=== PATIENT | male | born 1985 | race Caucasian/White ===

== ENCOUNTER 2017-01-06 05:05 | Emergency (ER) | payer OTHER ==
[~2017-01-06] VITALS: Ht 170.2 cm; Wt 72.6 kg
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
--- NOTE | 2017-01-06 05:05 | NUR ---
SMITH CHA ON SCENE AT [facility] AND IS AT BEDSIDE
--- NOTE | 2017-01-06 05:05 | NUR ---
BIB WHEELCHAIR TO ER BED 6 ACCOMPANIED BY SMITH CHA
[2017-01-06] MEDS ORDERED: NACL 0.9% 2,000 ML IV ONE (05:15)
[2017-01-06] MEDS ORDERED: LORazepam 2 MG/ML VIAL IVP ONE (05:15)
[2017-01-06] MEDS ORDERED: LORazepam 2 MG/ML VIAL ONE (05:16)
[2017-01-06] MEDS ORDERED: diphenhydrAMINE 50 MG/ML VIAL ONE (05:26)
[2017-01-06] MEDS ORDERED: HALOPERIDOL IM 5 MG/ML VIAL ONE ×2 (05:27→05:33)
[2017-01-06 05:40] VITALS: BP 120/90
[2017-01-06] MEDS ORDERED: MORPHINE SULFATE 2 MG/ML SYR IM ONE (06:00)
[2017-01-06] MEDS ORDERED: HALOPERIDOL IM 5 MG/ML VIAL IM ONE (06:05)
[2017-01-06] MEDS ORDERED: diphenhydrAMINE 50 MG/ML VIAL IM ONE (06:05)
[2017-01-06] MEDS ORDERED: LORazepam 2 MG/ML VIAL IM ONE (06:05)
--- NOTE | 2017-01-06 06:33 | NUR ---
SPOKE TO ER MD DR RICKS REGARDING URINE, DR RICKS STATED TO HOLD THE CATH INSERTION BC PT JUST FINALLY CALMED DOWN
--- NOTE | 2017-01-06 06:34 | NUR ---
PLAN OF CARE FOR RESTRAINTS WAS NOT FILLED OUT COMPLETELY BC INFORMATION TO COMPLETE IS UNABLE TO ASSESS AT THE MOMENT; PT CURRENTLY SLEEPING;
--- NOTE | 2017-01-06 07:13 | NUR ---
Pt report given to ELICIA BLANCO . Transfer of care at this time.
--- NOTE | 2017-01-06 07:15 | NUR ---
RECEIVED PATIENT ON BED WITH 4 POINT RESTRAINT.PT IS AGITATED AND WANTED TO GET OUT OF BED.PT IS ORIENTED TO PERSON,PLACE AND KNOWS 2017.DR ZARATE MADE AWARE.NO CO PAIN.
--- NOTE | 2017-01-06 09:29 | NUR ---
PUMA LUTZ UPDATED ABOUT PATIENTS CONDITION ESPECIALLY USAGE OF 4 POINT RESTRAINTS.
--- NOTE | 2017-01-06 10:25 | NUR ---
PT IS CALM AND COOPERATIVE AND FOLLLOWS DIRECTION AND UNDERSTANDS RELEASED OF 4 POINT RESTRAINTS.PT IS NOT COMBATIVE.GRANDMA BOLIVAR AT THE BEDSIDE TO BRING HIM HOME.PT IS ALERT,ORIENTED X 3.PT STILL DOESNT WANT TO URINATE .DR ZARATE SAID ITS OK HE CAN GO HOME.
[2017-01-06 10:55] VITALS: BP 119/63
--- NOTE | 2017-01-06 10:55 | NUR ---
Patient discharged with v/s stable. Written and verbal after care instructions given and explained. Patient verbalized understanding. Ambulatory with steady gait. All questions addressed prior to discharge. Advised to follow up with PMD.PUMA LUTZ BROUGHT THE PATIENT HOME.PT IS CALM ,COOPERATIVE AND FOLLOWS DIRECTIONS.
== END 2017-01-06 10:55 | disposition home or self-care (01) ==
LOC: MED 05:05
DX: F19.10 Other psychoactive substance abuse, uncomplicated (principal); R40.4 Transient alteration of awareness
CPT/HCPCS: 36415; 80053; 85025; 93005; 96360; 96372; 99285; G0480; G0482; J1200; J1630; J2060; J7030

== ENCOUNTER 2017-06-29 13:07 | Inpatient (IN) | payer OTHER ==
[~2017-06-29] VITALS: Ht 170.2 cm; Wt 76.7 kg
--- NOTE | 2017-06-29 13:07 | NUR ---
Patient was BIBA and taken to bed 03 via gurney per EMS.
[2017-06-29 13:09] VITALS: BP 160/72
--- NOTE | 2017-06-29 13:10 | NUR ---
PT PLACED ON 5150 HOLD BY SMITH CHA AT 1245 TODAY.
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
[2017-06-29] MEDS ORDERED: FLUO10CA21 PO (13:15)
--- NOTE | 2017-06-29 13:17 | NUR ---
Dr. Molina at bedside to evaluate patient.
[2017-06-29] MEDS ORDERED: OLAN2.5T1 PO (13:19)
[2017-06-29] MEDS ORDERED: QUET100T PO (13:19)
[2017-06-29] MEDS ORDERED: LORA-476 PO (13:19)
[2017-06-29] MEDS ORDERED: NEOMYCIN/POLYMYXIN/BACITRACIN 0.9 GM/1 PKT TP ONE (13:25)
[2017-06-29] MEDS ORDERED: LIDOCAINE 1% 500 MG/50 ML VIAL INJ ONE (13:25)
--- NOTE | 2017-06-29 13:32 | NUR ---
ER MD DR. ZARATE AT BEDSIDE FOR LACERATION REPAIR TO LEFT WRIST.
[2017-06-29] MEDS ORDERED: LIDOCAINE 1% ED 50 ML ONE (13:37)
[2017-06-29 14:05] LABS: BASOPHILS # (AUTO) 0.2 K/uL (0.00-0.22); HEMATOCRIT 45.9 % (36-52); HEMOGLOBIN 15.3 g/dL (12.0-18.0); LYMPHOCYTES # (AUTO) 0.7 K/uL (2.0-11.5); MEAN CORPUSCULAR HEMOGLOBIN 29 pg (27-31); MEAN CORPUSCULAR HGB CONC 33 g/dL (33-37); MEAN CORPUSCULAR VOLUME 88 fL (80-94); MONOCYTES # (AUTO) 0.5 K/uL (0.8-1.0); PLATELET COUNT (AUTO) 264 K/uL (140-450); RED BLOOD CELL COUNT(AUTO) 5.19 MIL/uL (4.20-6.10); RED CELL DISTRIBUTION WIDTH 12.5 % (11.6-13.7); WHITE BLOOD COUNT (AUTO) 7.4 K/uL (4.8-10.8)
[2017-06-29 14:18] LABS: APPEARANCE,URINE CLEAR (CLEAR); BILIRUBIN,URINE NEGATIVE (NEGATIVE); BLOOD, URINE NEGATIVE (NEGATIVE); COLOR,URINE YELLOW (YELLOW); LEUKOCYTE ESTERASE ,URINE NEGATIVE (NEGATIVE); NITRITE, URINE NEGATIVE (NEGATIVE); PH,URINE 6.5 (5.0-9.0); UGLUCOSE NEGATIVE (NEGATIVE)
--- NOTE | 2017-06-29 14:23 | NUR ---
PT APPEARS TO BE RESTING COMFORTABLY IN BED; RR EVEN/UNLABORED; VSS AT THIS TIME; FAMILY AT BEDSIDE; WILL CONTINUE TO MONITOR. Addendum: 06/29/17 at 1505 by [employer] SITTER AT BEDSIDE AT THIS TIME.
[2017-06-29 14:26] LABS: CARBON DIOXIDE 26.8 mmol/L (21-32); CHLORIDE 102 mmol/L (98-107); GFR ARICAN-AMERICAN 113 mL/min (>90); GLUCOSE 116 mg/dL (74-106); POTASSIUM 3.8 mmol/L (3.5-5.1); SODIUM SERUM 139 mmol/L (136-145); UREA NITROGEN, BLOOD 12 mg/dL (7-18)
[2017-06-29 14:28] LABS: BARBITURATE, URINE NEG. ng/ml (NEG <=200); BENZODIAZEPINE, URINE NEG. ng/mL (NEG <=200); CANNABINOID, URINE NEG. ng/mL (NEG <=50); COCAINE, URINE NEG. ng/mL (NEG <=300); OPIATE, URINE NEG. ng/mL (NEG <=2000); PHENCYCLIDINE SCREEN,URINE NEG. ng/mL (NEG <=25)
[2017-06-29 14:29] LABS: ALBUMIN 4.6 g/dL (3.4-5.0); ASPARTATE AMINOTRANSFERASE 17 U/L (15-37); TOTAL BILIRUBIN 0.5 mg/dL (0.0-1.0)
[2017-06-29 14:31] LABS: SALICYLATE < 2.8 mg/dL (2.8-20.0)
[2017-06-29 14:42] LABS: ACETAMINOPHEN < 0.5 ug/ml (10-30)
--- NOTE | 2017-06-29 14:55 | NUR ---
HENRY (pts mother) [phone].
--- NOTE | 2017-06-29 15:10 | NUR ---
PT APPEARS TO BE RESTING COMFORTABLY IN BED; POSITIONED FOR COMFORT; RR EVEN/UNLABORED; VSS AT THIS TIME; SITTER AT BEDSIDE; WILL CONTINUE TO MONITOR.
--- NOTE | 2017-06-29 16:12 | NUR ---
PT APPEARS TO BE RESTING COMFORTABLY IN BED; POSITIONED FOR COMFORT; RR EVEN/UNLABORED; VSS AT THIS TIME; SITTER AT BEDSIDE; WILL CONTINUE TO MONITOR.
[2017-06-29] MEDS ORDERED: HYDROcodone/APAP 5/325 MG 1 TAB TAB PO PRN (16:50)
[2017-06-29] MEDS ORDERED: ACETAMINOPHEN 325 MG TAB PO PRN (16:50)
[2017-06-29] MEDS ORDERED: ONDANSETRON 4 MG/2 ML VIAL IVP PRN (16:50)
--- NOTE | 2017-06-29 17:04 | NUR ---
REPORT GIVEN TO FRANCIS MANJARREZ
--- NOTE | 2017-06-29 17:10 | NUR ---
Patient will be admitted to care of DR. PADILLA. Admited to TELEMETRY. Will go to room 109A. Belongings list completed. Report to LORENA. BLANCO.
[2017-06-29 17:30] VITALS: BP 130/93
--- NOTE | 2017-06-29 17:30 | NUR ---
RECEIVE PT ON THE UNIT VIA GURNEY, PT IS A/OX4, AMBULATORY, PT HAS IV ON THE RIGHT WRIST, PATENT, INTACT, FLUSHING WELL, PT HAS DRESSING AROUND THE LEFT WRIST FROM LACERATION THAT WAS SUTURED IN ER, DRESSING IS CLEAN, DRY AND INTACT, NO S/S OF RESPIRATORY DISTRESS OR DISCOMFORT NOTED, PT IS PACING AROUND THE ROOM, PT IS HAVING A MINOR NOSE BLEED FROM BLOWING HIS NOSE, DISCUSSED PLAN OF CARE WITH PT, PT VERBALIZED UNDERSTANDING, SAFETY/FALL/SUICIDE PRECAUTIONS ARE IN PLACE, 1:1 SITTER IS AT BEDSIDE, WILL CONTINUE TO MONITOR.
--- NOTE | 2017-06-29 19:20 | NUR ---
ENDORSED PT TO MEDIA ACCOUNT EXECUTIVE NURSE FOR CONTINUITY OF CARE, PT STABLE AT THIS TIME.
--- NOTE | 2017-06-29 19:21 | NUR ---
RECEIVED PATIENT REPORT AT BEDSIDE FROM MORNING NURSE. PATIENT IS AWAKE, ALERT AND ORIENTED. PATIENT IS RESTING COMFORTABLY IN BED. NO SIGNS AND SYMPTOMS OF DISTRESS NOTED. NO COMPLAINTS OF PAIN AT THIS TIME. IV SITE NOTED RIGHT WRIST. BANDAGE NOTED ON LEFT ARM COVERING LEFT WRIST LACERATION. BANDAGE IS DRY, AND INTACT. BED IS IN LOWEST POSITION. 1:1 SITTER IS PRESENT IN ROOM. WILL CONTINUE TO MONITOR.
[2017-06-30] VITALS: BP 137/74
--- NOTE | 2017-06-30 01:00 | NUR ---
CHECKED ON PATIENT. PATIENT IS RESTING IN BED COMFORTABLY. NO SIGNS AND SYMPTOMS OF DISTRESS NOTED. NO COMPLAINTS OF PAIN AT THIS TIME. 1:1 SITTER PRESENT IN ROOM. WILL CONTINUE TO MONITOR
--- NOTE | 2017-06-30 07:39 | NUR ---
PATIENT REPORT GIVEN TO MORNING NURSE AT BEDSIDE. PATIENT IS IN STABLE CONDITION.
--- NOTE | 2017-06-30 07:40 | NUR ---
RECEIVED ON BED AAOX4. NO SOB NOTED. NO C/O PAIN AT THIS TIME. IV TO RT WRIST PATENT AND INTACT. CHEST CLEAR. ABDOMEN SOFT, BOWEL SOUNDS PRESENT. NO EDEMA NOTED. WITH LACERATION TO LEFT HAND/WRIST, DRESSING DRY AND INTACT. INSTRUCTED PT TO CALL FOR ASSISTANCE, BED ON LOW POSITION, 3 SIDE RAILS UP AND WITH 1:1 SITTER FOR SAFETY. WILL OBSERVE FOR ANY SUICIDAL IDEATION. PT VERBALIZED UNDERSTANDING.
[2017-06-30 07:59] VITALS: BP 130/77
[2017-06-30] MEDS: LORazepam 2 MG/ML VIAL IVP PRN (08:46)
--- NOTE | 2017-06-30 08:46 | NUR ---
PT C/O ANXIETY AND IS PACING BACK AND FORTH IN HIS ROOM. NO SUICIDAL IDEATION PER PT. MEDICATED WITH ATIVAN IVP PRN. WILL CONTINUE TO MONITOR PT.
[2017-06-30] MEDS: ENOXAPARIN 40 MG/0.4 ML SYR SUBQ SCH (08:51)
--- NOTE | 2017-06-30 09:54 | NUR ---
PATIENT HAS BEEN SCREENED AND CATEGORIZED LOW NUTRITION RISK. PATIENT WILL BE SEEN WITHIN 7 DAYS OF ADMISSION. 07/06/[address]
--- NOTE | 2017-06-30 13:08 | NUR ---
CM NOTE INITIAL REVIEW FAXED TO [facility] / FAX# [phone], ATTN: ROSHNI #[phone]
[2017-06-30 16:00] VITALS: BP 129/66
--- NOTE | 2017-06-30 16:31 | NUR ---
PAGED DR. MARQUEZ TO FOLLOW UP WITH PSYCH CONSULT. AWAITING FOR CALL BACK.
--- NOTE | 2017-06-30 18:56 | NUR ---
PT RESTING, NO SOB NOTED. NO COMPLAINTS MADE. NO SUICIDAL IDEATION NOTED. WILL ENDORSE TO NEXT SHIFT NURSE FOR CONTINUITY OF CARE.
--- NOTE | 2017-06-30 19:30 | NUR ---
RECEIVED PT IN STABLE FROM AM NURSE FOR CONTINUITY OF CARE. AWAKE,ALERT AND ORIENTED X 4. MED SURG PT. ON 1:1 SITTER. HL ONLY ON THE RT WRIST #20. CLEAR AND PATENT. PLAN OF CARE DISCUSSED. CALL LIGHT PLACED WITHIN EASY REACH. WILL CONTINUE TO MONITOR.
--- NOTE | 2017-06-30 20:47 | NUR ---
PT C/O OF ITCHING ON THE DRESSING ON LT WRIST . DRESSING WAS REMOVED. WITH STICHES INTACT. CLEANED WITH NS AND COVERED WITH NO ADHERENT DRESSING. WRAPPED WITH KERLIX.
--- NOTE | 2017-06-30 21:30 | NUR ---
THE FATHER AND GRAND FATHER WERE AT BED SITE.
[2017-06-30 23:31] VITALS: BP 129/76
--- NOTE | 2017-06-30 23:38 | NUR ---
PT SLEEPING WELL AT THIS TIME.
--- NOTE | 2017-07-01 04:00 | NUR ---
MADE ROUNDS . PT IS SLEEPING WELL. NO S/S OF ANY DISCOMFORT NOR PAIN NOTED.
--- NOTE | 2017-07-01 07:30 | NUR ---
ENDORSED PT IN STABLE CONDITION TO AM NURSE.
--- NOTE | 2017-07-01 07:30 | NUR ---
PT REPORT RECEIVED AT BEDSIDE. PT ASLEEP BUT EASILY AROUSED. NO S/S OF DISTRESS. PT DENIES PAIN AT THIS TIME. PT IS CALM AND COOPERATIVE. DRESSING NOTED ON THE LEFT WRIST. DRESSING IS CLEAN, DRY AND TIGHT. PT IS WITH 1:1 SITTER. BED LOWERED AND CALL LIGHT IS WITHIN REACH. WILL CONTINUE TO MONITOR.
[2017-07-01 08:10] VITALS: BP 134/58
[2017-07-01] MEDS: ENOXAPARIN 40 MG/0.4 ML SYR SUBQ SCH (08:31)
--- NOTE | 2017-07-01 09:25 | NUR ---
FAXED CONCURRENT REVIEW TO [facility] [phone] PHONE ROSHNI [phone] SPOKE WITH ART FROM [facility] ABOUT PLACEMENT OF THIS PATIENT IN PSYCH FACILITY. PHONE [phone]. FAXED INFORMATION TO HIM, AT [phone].
[2017-07-01] MEDS: LORazepam 2 MG/ML VIAL IVP PRN (09:51)
[2017-07-01 12:18] VITALS: BP 126/75
--- NOTE | 2017-07-01 12:28 | NUR ---
SPOKE WITH LILO FROM [facility]. LABS, WOUND ASSESSMENTS AND LATEST VITAL SIGNS FAXED TO [facility]
--- NOTE | 2017-07-01 13:27 | NUR ---
RECEIVED A CALL FROM ART FROM [facility]. HE SAID [facility] ACCEPTED THE PATIENT UNDER DR ACOSTA. PHONE TO MONROVIA IS [phone]. I CALLED [facility] AND SET UP TRANSPORT ON WILL CALL. AWAITING ROOM NUMBER. Addendum: 07/01/17 at 1329 by Mia Mayen [facility] PHONE [phone]
--- NOTE | 2017-07-01 14:41 | NUR ---
CALLED [facility], SPOKE WITH ROSEMARY BLANCO. PT REPORT GIVEN.
[2017-07-01] MEDS ORDERED: INFLUENZA VIRUS VACCINE QUAD 0.5 ML SYR IMVAC SCH (14:55)
--- NOTE | 2017-07-01 14:56 | NUR ---
SPOKE WITH ART FROM [facility]. THE PATIENT WILL GO TO [facility] [phone] [place] PHONE REPORT TO [phone]. ROOM [address] ACOSTA[address] LIDIA BLANCOMANAGER DAIRY NURSE AWARE.
--- NOTE | 2017-07-01 15:16 | NUR ---
PT DC'd TO [facility]. PT LEFT THE WITH [facility]. PT LEFT WITH ALL HIS BELONGINGS. PT LEFT IN STABLE CONDITION. NO S/S OF DISTRESS NOTED.
== END 2017-07-01 15:15 | disposition designated cancer center or children's hospital (05) | DRG 951 ==
LOC: MED 13:07 → MTU 16:51 → OBSVTOIN 06-30 20:44
PROVIDERS: ADMIT Hospitalist; ATTEND Hospitalist
PROC: 0XQHXZZ Repair Left Wrist Region, External Approach (ICD-10-PCS; principal; 2017-06-30)
PROC: 3E0234Z Introduction of Serum, Toxoid and Vaccine into Muscle, Percutaneous Approach (ICD-10-PCS; 2017-07-01)
DX: S61.512A Laceration without foreign body of left wrist, initial encounter (principal); F33.2 Major depressive disorder, recurrent severe without psychotic features; F41.9 Anxiety disorder, unspecified; F17.210 Nicotine dependence, cigarettes, uncomplicated; F40.10 Social phobia, unspecified; Z79.899 Other long term (current) drug therapy; X78.8XXA Intentional self-harm by other sharp object, initial encounter; Y93.89 Activity, other specified; Y92.89 Other specified places as the place of occurrence of the external cause; Y99.8 Other external cause status; Z90.49 Acquired absence of other specified parts of digestive tract; Z23 Encounter for immunization
CPT/HCPCS: 36415; 80053; 80305; 81003; 85025; 87081; 90471; 90658; 90715; 99285; G0378; G0480; G0482; J1650; J2001; J2060